=== PATIENT | female | born 1970 | race Caucasian/White ===

== ENCOUNTER 2018-06-13 11:10 | Emergency (ER) | payer SELFPAY ==
--- NOTE | 2018-06-13 11:51 | ER ---
Nurse's Notes [facility] Name: Willa Calloway Age: 48 yrs Sex: Female : 1970 Arrival Date: 06/13/2018 Time: 11:13 Bed 11 Private MD: None, None Diagnosis: Other hypertrophic disorders of the skin Presentation: 06/13 11:15 Presenting complaint: Patient states: i have a growth since the beginning of February here at my R lower arm, went to urgent care and was referred here to ER; denies fever and chills;. Transition of care: patient was not received from another setting of care. Onset of symptoms was June 13, 2018. Risk Assessment: Do you want to hurt yourself or someone else? Patient reports no desire to harm self or others. Initial Sepsis Screen: Does the patient meet any 2 criteria? No. Patient's initial sepsis screen is negative. Does the patient have a suspected source of infection? No. Patient's initial sepsis screen is negative. Care prior to arrival: None. 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 - Social history:: Smoking status: Patient/guardian denies using tobacco. - Ebola Screening: : No symptoms or risks identified at this time. Screenin:35 Abuse screen: Denies threats or abuse. Denies injuries from another. Nutritional hb screening: No deficits noted. Tuberculosis screening: No symptoms or risk factors identified. Fall Risk None identified. Assessment: 11:35 General: Appears in no apparent distress. Behavior is calm, cooperative. Pain: Denies hb pain. Neuro: Level of Consciousness is awake, alert, obeys commands, Oriented to person, place, time, situation. Cardiovascular: Capillary refill < 3 seconds Patient's skin is warm and dry. Respiratory: Airway is patent Respiratory effort is even, unlabored, Respiratory pattern is regular, symmetrical. GI: No signs and/or symptoms were reported involving the gastrointestinal system. : No signs and/or symptoms were reported regarding the genitourinary system. EENT: No signs and/or symptoms were reported regarding the EENT system. Derm: skin tag noted to right lower arm. Musculoskeletal: No signs and/or symptoms reported regarding the musculoskeletal system. Vital Signs: 11:17 BP 124 / 82; Pulse 89; Resp 18; Temp 98.4(O); Pulse Ox 99% on R/A; Weight 102.06 kg; hj Height 5 ft. 9 in. (175.26 cm); Pain 0/10; 11:17 Body Mass Index 33.23 (102.06 kg, 175.26 cm) ED Course: 11:13 Patient arrived in ED. mr 11:13 None, None is Private Physician. mr 11:17 Triage completed. hj 11:18 Arm band placed on left wrist. 11:21 Norman Seth PA is PHCP. [facility] 11:21 Kelvin Pollard MD is Attending Physician. [facility] 11:35 Patient has correct armband on for positive identification. Call light in reach. hb 11:35 No provider procedures requiring assistance completed. Patient did not have IV access hb during this emergency room visit. 11:52 Karma Martin, RN is Primary Nurse. hb Administered Medications: No medications were administered Outcome: 11:35 Discharged to home hb 11:35 Condition: stable 11:35 Instructed on follow up and referral plans. Demonstrated understanding of follow-up care. 11:51 Discharge ordered by MD. [facility] 11:55 Patient left the ED. hb Signatures: Norman Seth PA PA jmm Napoleon Marlen Tapan Traylor RN RN Karma Martin, JOSE RN hb Corrections: (The following items were deleted from the chart) 11:19 11:17 Pulse 93bpm; Resp 18bpm; Pulse Ox 99% RA; Temp 98.4F Oral; 102.06 kg; Height 5 hj ft. 9 in.; BMI: 33.2; Pain 0/10; hj 11:20 11:17 Pulse 93bpm; Resp 18bpm; Pulse Ox 99% RA; Temp 98.4F Oral; 102.06 kg; Height 5 hj ft. 9 in.; BMI: 33.2; Pain 0/10; hj 11:20 11:17 Pulse 89bpm; Resp 18bpm; Pulse Ox 99% RA; Temp 98.4F Oral; 102.06 kg; Height 5 hj ft. 9 in.; BMI: 33.2; Pain 0/10; hj
--- NOTE | 2018-06-13 11:51 | EDPHYS ---
Physician Documentation [facility] Name: Willa Calloway Age: 48 yrs Sex: Female : 1970 Arrival Date: 06/13/2018 Time: 11:13 Bed 11 Private MD: None, None ED Physician Kelvin Pollard HPI: 06/13 11:40 This 48 yrs old Female presents to ER via Ambulatory with complaints of Wound jmm Infection. 11:40 The patient's rash thought to be caused by an unknown cause. jmm 11:40 The rash is located on the right arm. Onset: The symptoms/episode began/occurred 3 jmm month(s) ago. Associated signs and symptoms: Pertinent positives: itching. This is a 48 year old female with no known chronic medical conditions that presents to the ED with complaints of a growth to her right forearm. patient states this initially developed in February. Patient states it has progressively increased in size and states that it now occasionally drains fluid. Patient denies fever. . 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 - Social history:: Smoking status: Patient/guardian denies using tobacco. - Ebola Screening: : No symptoms or risks identified at this time. ROS: 11:40 Constitutional: Negative for fever, chills, and weight loss, Cardiovascular: Negative jmm for chest pain, palpitations, and edema, Respiratory: Negative for shortness of breath, cough, wheezing, and pleuritic chest pain, MS/Extremity: Negative for injury and deformity. 11:40 Skin: Positive for lesion. 11:40 All other systems are negative. Exam: 11:40 Constitutional: This is a well developed, well nourished patient who is awake, alert, jmm and in no acute distress. Head/Face: atraumatic. Eyes: EOMI, no conjunctival erythema appreciated ENT: Moist Mucus Membranes Neck: Trachea midline, Supple Chest/axilla: Normal chest wall appearance and motion. Cardiovascular: Regular rate and rhythm. No edema appreciated Respiratory: Normal respirations, no respiratory distress appreciated Abdomen/GI: Non distended, soft Back: Normal ROM 11:40 Musculoskeletal/extremity: compartments soft to the right arm, full radial pulse is appreciated, NVI. 11:40 Skin: firm pedunculated lesion noted to the right forearm, no surrounding erythema or induration is appreciated. no purulent drainage is appreciated.. 11:40 Neuro: Orientation: is normal, Mentation: is normal, Memory: is normal. 11:40 Psych: Behavior/mood is pleasant, cooperative. Vital Signs: 11:17 BP 124 / 82; Pulse 89; Resp 18; Temp 98.4(O); Pulse Ox 99% on R/A; Weight 102.06 kg; hj Height 5 ft. 9 in. (175.26 cm); Pain 0/10; 11:17 Body Mass Index 33.23 (102.06 kg, 175.26 cm) MDM: 11:40 Patient medically screened. [facility] 11:40 ED course: The area does not show clinical signs of cellulitis/abscess. I advised the [facility] patient she would need further evaluation by Dermatology and this may be cancerous. Patient was otherwise given wound infection return precautions. Patient understood and agrees with the plan of care. . 11:50 Data reviewed: vital signs, nurses notes. Counseling: I had a detailed discussion with [facility] the patient and/or guardian regarding: the historical points, exam findings, and any diagnostic results supporting the discharge/admit diagnosis, the need for outpatient follow up, to return to the emergency department if symptoms worsen or persist or if there are any questions or concerns that arise at home. Administered Medications: No medications were administered Disposition: 12:10 Co-signature as Attending Physician, Kelvin Pollard MD I agree with the assessment and kdr plan of care. Disposition: 06/13/18 11:51 Discharged to Home. Impression: Other hypertrophic disorders of the skin. - Condition is Stable. - Medication Reconciliation Form, Thank You Letter, Antibiotic Education, Prescription Opioid Use form. - Follow up: Private Physician; When: 2 - 3 days; Reason: Recheck today's complaints, Continuance of care, Re-evaluation by your physician. Signatures: Kelvin Pollard MD MD kdr Mickail, Joel, PA PA jmm Joaquin, Henry, RN RN Karma Martin RN RN Corrections: (The following items were deleted from the chart) 11:55 11:51 06/13/2018 11:51 Discharged to Home. Impression: Other hypertrophic disorders of hb the skin. Condition is Stable. Forms are Medication Reconciliation Form, Thank You Letter, Antibiotic Education, Prescription Opioid Use. Follow up: Private Physician; When: 2 - 3 days; Reason: Recheck today's complaints, Continuance of care, Re-evaluation by your physician. cinthya
== END 2018-06-13 11:55 | disposition home or self-care (01) ==
LOC: ER 11:10
DX: L91.8 Other hypertrophic disorders of the skin (principal)
CPT/HCPCS: 99281